=== PATIENT | male | born 1995 | race Caucasian/White ===

== ENCOUNTER 2017-04-27 10:49 | Emergency (ER) | payer OTHER ==
[~2017-04-27] VITALS: Ht 182.9 cm; Wt 68.2 kg
[2017-04-27 10:49] VITALS: BP 103/69
[2017-04-27] MEDS ORDERED: ZITHTAB PO ×2 (11:19→11:30)
[2017-04-27] MEDS ORDERED: TESS100C PO ×2 (11:19→11:30)
== END 2017-04-27 11:46 | disposition home or self-care (01) ==
LOC: M ED 10:49
DX: J06.9 Acute upper respiratory infection, unspecified (principal)

== ENCOUNTER 2017-06-06 13:31 | Emergency (ER) | payer OTHER ==
[~2017-06-06] VITALS: Ht 182.9 cm; Wt 70.5 kg
[~2017-06-06 13:31] MED LIST: TESS100C PO; ZITHTAB PO
[2017-06-06] MEDS ORDERED: diphenhydrAMINE INJ 50MG/ML VIAL (J1200) IV ONE (14:45)
[2017-06-06] MEDS ORDERED: KETOROLAC 30 MG/ML VIAL (J1885) IV ONE (14:45)
[2017-06-06] MEDS ORDERED: NS 1,000 ML IV ONE (14:45)
[2017-06-06] MEDS ORDERED: METOCLOPRAMIDE INJ 10MG/2ML VIAL (J2765) IV ONE (14:45)
[2017-06-06 15:19] LABS: BASO % 0.2 % (0.0-1.0); EOS % 0.4 % (0.0-3.0); IMMATURE GRANULOCYTE % 0.3 % (0-0); LYMPH # 0.8 10^3/uL (1.5-6.5); LYMPH % 7.7 % (24.0-44.0); MEAN CORPUSCULAR HEMOGLOBIN 28.4 pg (27.0-33.0); MEAN CORPUSCULAR HGB CONC 33.5 g/dl (32.0-36.5); MEAN CORPUSCULAR VOLUME 84.7 fl (80.0-96.0); MONO # 0.6 10^3/uL (0.0-0.8); MONO % 5.8 % (0.0-5.0); NEUTROPHILS # 9.3 10^3/uL (1.8-7.7); NEUTROPHILS % 85.6 % (36.0-66.0); PLATELET COUNT, AUTOMATED 167 10^3/uL (150-450); RED CELL DISTRIBUTION WIDTH 12.7 % (11.5-14.5); WHITE BLOOD COUNT 10.9 10^3/uL (4.0-10.0)
[2017-06-06 16:21] LABS: ALT/SGPT 19 U/L (12-78); ANION GAP 6 MEQ/L (8-16); AST/SGOT 12 U/L (15-37); BLOOD UREA NITROGEN 16 MG/DL (7-18); CALCIUM LEVEL 8.9 MG/DL (8.5-10.1); CARBON DIOXIDE LEVEL 29 MEQ/L (21-32); CHLORIDE LEVEL 105 MEQ/L (98-107); CREATININE FOR GFR 0.86 MG/DL (0.70-1.30); GLUCOSE, FASTING 94 MG/DL (70-105); POTASSIUM SERUM 3.9 MEQ/L (3.5-5.1); SODIUM LEVEL 140 MEQ/L (136-145)
[2017-06-06 16:22] LABS: ALBUMIN 4.4 GM/DL (3.2-5.2); ALBUMIN/GLOBULIN RATIO 1.52 (1.00-1.93); ALKALINE PHOSPHATASE 78 U/L (45-117); BILIRUBIN,DIRECT 0.3 MG/DL (0.0-0.2); BILIRUBIN,TOTAL 0.9 MG/DL (0.2-1.0); TOTAL PROTEIN 7.3 GM/DL (6.4-8.2)
[2017-06-06] MEDS ORDERED: ACETAMINOPHEN 325 MG TAB PO ONE (17:00)
[2017-06-06 17:05] VITALS: BP 104/62
== END 2017-06-06 17:10 | disposition home or self-care (01) ==
LOC: M ED 13:31
DX: R11.2 Nausea with vomiting, unspecified (principal); R19.7 Diarrhea, unspecified
CPT/HCPCS: 36415; 80048; 80076; 83690; 85025; 96361; 96374; 96375; 99283; J1200; J1885; J2765

== ENCOUNTER 2017-12-28 11:02 | Emergency (ER) | payer OTHER | END 2017-12-28 12:19 | disposition home or self-care (01) | LOC: M ED 11:02 | DX: M25.551 Pain in right hip (principal); G89.29 Other chronic pain | CPT/HCPCS: 99283 ==

== ENCOUNTER → 2017-12-31 | Outpatient (CLI) | payer OTHER ==
[~2017-12-31] MED LIST changes: +CONRAY-43 43% 50ML VIAL (Q9960) As Ordered; +LIDOCAINE 1% MDV 20ML VIAL As Ordered; -TESS100C PO; +TRIAMCINOLONE ACETONIDE SUSP 40 MG/ML VIAL (J3301) As Ordered; -ZITHTAB PO
== END ==
LOC: M RADPRO 11:13
DX: M25.851 Other specified joint disorders, right hip (principal)
CPT/HCPCS: 20610

== ENCOUNTER 2018-04-10 16:10 | Inpatient (IN) | payer OTHER ==
[2018-04-10] MEDS ORDERED: dexameTHASONE 4 MG/ML 1ML VIAL (J1100) As Ordered (17:13)
[2018-04-10] MEDS ORDERED: PROPOFOL 200 MG/20 ML VIAL As Ordered ×2 (17:13→18:00)
[2018-04-10] MEDS ORDERED: fentaNYL 100 MCG/2 ML INJECTION (J3010) As Ordered ×2 (17:13→18:12)
[2018-04-10] MEDS ORDERED: LIDOCAINE 2% INJ 100 MG/5 ML SDV (FOR ANES.) As Ordered (17:13)
[2018-04-10] MEDS ORDERED: ONDANSETRON 4MG/2ML VIAL (J2405) As Ordered (17:13)
[2018-04-10] MEDS ORDERED: MIDAZOLAM INJ 2 MG/2 ML VIAL (J2250) As Ordered (17:13)
[2018-04-10] MEDS ORDERED: KETOROLAC 60 MG/2 ML VIAL (J1885) As Ordered (17:47)
[2018-04-10] MEDS: VANCOMYCIN HCL 1,000 MG, VIAL MATE ADAPTER 1 EACH in D5W 250 ML IV (18:15)
[2018-04-10] MEDS: BUPIVACAINE HCL 0.25% 30 ML VIAL As Ordered (18:29)
[2018-04-10] MEDS: LIDOCAINE 1% SDV INJ 30 ML VIAL As Ordered (18:29)
[2018-04-10] MEDS ORDERED: MEPERIDINE INJ 25 MG/ML VIAL (J2175) As Ordered (18:50)
[2018-04-10] MEDS: MEPERIDINE INJ 25 MG/ML VIAL (J2175) IV ×2 (18:52→18:57)
[2018-04-10] MEDS ORDERED: fentaNYL 100 MCG/2 ML INJECTION (J3010) IV (19:00)
[2018-04-10] MEDS ORDERED: ONDANSETRON 4MG/2ML VIAL (J2405) IV (19:00)
[2018-04-10] MEDS ORDERED: PERCOCET 5MG/325MG TAB PO (19:00)
[2018-04-10] MEDS ORDERED: VANCOMYCIN HCL 500 MG in D5W MINI-BAG PLUS 100 ML IV (20:00)
[2018-04-10] MEDS: diphenhydrAMINE 50 MG CAP PO (21:07)
[2018-04-10] MEDS: PIPERACILLIN/TAZOBACTAM SOD 3.375 GM in D5W MINI-BAG PLUS 50 ML IV (21:07)
[2018-04-10] MEDS: NS 1,000 ML IV (21:08)
[2018-04-10] MEDS: MORPHINE 4 MG/ML 1ML VIAL/SYRINGE (J2270) IV (21:50)
[2018-04-11] MEDS: PERCOCET 5MG/325MG TAB PO ×3 (01:40→18:54)
[2018-04-11] MEDS ORDERED: VANCOMYCIN HCL 1,000 MG, VIAL MATE ADAPTER 1 EACH in D5W 250 ML IV ×2 (02:00→10:15)
[2018-04-11] MEDS: PIPERACILLIN/TAZOBACTAM SOD 3.375 GM in D5W MINI-BAG PLUS 50 ML IV ×4 (03:56→21:04)
[2018-04-11] MEDS ORDERED: diphenhydrAMINE 50 MG CAP PO (06:30)
[2018-04-11 07:50] LABS: HEMOGLOBIN 12.2 g/dl (13.5-17.5); MEAN CORPUSCULAR HEMOGLOBIN 28.9 pg (27.0-33.0); MEAN CORPUSCULAR HGB CONC 33.9 g/dl (32.0-36.5); MEAN CORPUSCULAR VOLUME 85.3 fl (80.0-96.0); PLATELET COUNT, AUTOMATED 188 10^3/uL (150-450); RED BLOOD COUNT 4.22 10^6/uL (4.30-6.10); RED CELL DISTRIBUTION WIDTH 12.3 % (11.5-14.5); WHITE BLOOD COUNT 9.8 10^3/uL (4.0-10.0)
[2018-04-11] MEDS: LR 1,000 ML IV (07:58)
[2018-04-11 08:42] LABS: ERYTHROCYTE SEDIMENTATION RATE 12 mm/hr (0-15)
[2018-04-11] MEDS: DOCUSATE SODIUM 100 MG CAP PO (09:09)
[2018-04-11] MEDS: NS 1,000 ML IV (11:50)
[2018-04-11] MEDS: ASPIRIN 325 MG TAB PO (11:50)
[2018-04-11 12:16] LABS: ANION GAP 6 MEQ/L (8-16); BLOOD UREA NITROGEN 9 MG/DL (7-18); CALCIUM LEVEL 8.3 MG/DL (8.5-10.1); CARBON DIOXIDE LEVEL 30 MEQ/L (21-32); CHLORIDE LEVEL 109 MEQ/L (98-107); CREATININE FOR GFR 1.03 MG/DL (0.70-1.30); GLOMERULAR FILTRATION RATE > 60.0 (>60); GLUCOSE, FASTING 111 MG/DL (70-100); SODIUM LEVEL 145 MEQ/L (136-145)
[2018-04-12] MEDS: PERCOCET 5MG/325MG TAB PO ×3 (02:33→20:32)
[2018-04-12] MEDS: PIPERACILLIN/TAZOBACTAM SOD 3.375 GM in D5W MINI-BAG PLUS 50 ML IV ×4 (03:18→20:31)
[2018-04-12 06:21] LABS: HEMATOCRIT 33.9 % (42.0-52.0); HEMOGLOBIN 11.2 g/dl (13.5-17.5); MEAN CORPUSCULAR HEMOGLOBIN 28.1 pg (27.0-33.0); PLATELET COUNT, AUTOMATED 174 10^3/uL (150-450); RED BLOOD COUNT 3.99 10^6/uL (4.30-6.10); RED CELL DISTRIBUTION WIDTH 12.4 % (11.5-14.5); WHITE BLOOD COUNT 7.1 10^3/uL (4.0-10.0)
[2018-04-12 06:34] LABS: ANION GAP 7 MEQ/L (8-16); BLOOD UREA NITROGEN 8 MG/DL (7-18); C REACTIVE PROTEIN QUANTITATIV 5.37 MG/DL (0.00-0.30); CALCIUM LEVEL 8.5 MG/DL (8.5-10.1); CARBON DIOXIDE LEVEL 29 MEQ/L (21-32); CHLORIDE LEVEL 107 MEQ/L (98-107); CREATININE FOR GFR 0.92 MG/DL (0.70-1.30); GLOMERULAR FILTRATION RATE > 60.0 (>60); GLUCOSE, FASTING 91 MG/DL (70-100); POTASSIUM SERUM 3.4 MEQ/L (3.5-5.1); SODIUM LEVEL 143 MEQ/L (136-145)
[2018-04-12 07:37] LABS: ERYTHROCYTE SEDIMENTATION RATE 19 mm/hr (0-15)
[2018-04-12] MEDS: ASPIRIN 325 MG TAB PO (08:46)
[2018-04-12] MEDS: DOCUSATE SODIUM 100 MG CAP PO (08:47)
[2018-04-13] MEDS: PIPERACILLIN/TAZOBACTAM SOD 3.375 GM in D5W MINI-BAG PLUS 50 ML IV ×4 (03:43→21:11)
[2018-04-13] MEDS: PERCOCET 5MG/325MG TAB PO ×3 (03:52→20:27)
[2018-04-13 07:04] LABS: HEMATOCRIT 35.3 % (42.0-52.0); HEMOGLOBIN 11.9 g/dl (13.5-17.5); MEAN CORPUSCULAR HGB CONC 33.7 g/dl (32.0-36.5); MEAN CORPUSCULAR VOLUME 85.9 fl (80.0-96.0); PLATELET COUNT, AUTOMATED 197 10^3/uL (150-450); RED BLOOD COUNT 4.11 10^6/uL (4.30-6.10); RED CELL DISTRIBUTION WIDTH 12.2 % (11.5-14.5); WHITE BLOOD COUNT 5.9 10^3/uL (4.0-10.0)
[2018-04-13 07:18] LABS: ANION GAP 7 MEQ/L (8-16); BLOOD UREA NITROGEN 8 MG/DL (7-18); C REACTIVE PROTEIN QUANTITATIV 4.06 MG/DL (0.00-0.30); CALCIUM LEVEL 8.7 MG/DL (8.5-10.1); CARBON DIOXIDE LEVEL 30 MEQ/L (21-32); CHLORIDE LEVEL 106 MEQ/L (98-107); CREATININE FOR GFR 0.89 MG/DL (0.70-1.30); GLOMERULAR FILTRATION RATE > 60.0 (>60); GLUCOSE, FASTING 95 MG/DL (70-100); POTASSIUM SERUM 3.8 MEQ/L (3.5-5.1); SODIUM LEVEL 143 MEQ/L (136-145)
[2018-04-13 07:34] LABS: ERYTHROCYTE SEDIMENTATION RATE 30 mm/hr (0-15)
[2018-04-13] MEDS: ASPIRIN 325 MG TAB PO (08:51)
[2018-04-13] MEDS: DOCUSATE SODIUM 100 MG CAP PO (08:51)
[2018-04-14] MEDS: PIPERACILLIN/TAZOBACTAM SOD 3.375 GM in D5W MINI-BAG PLUS 50 ML IV ×4 (02:55→20:39)
[2018-04-14] MEDS: PERCOCET 5MG/325MG TAB PO ×3 (02:55→20:46)
[2018-04-14 07:30] LABS: ANION GAP 7 MEQ/L (8-16); BLOOD UREA NITROGEN 8 MG/DL (7-18); CALCIUM LEVEL 8.8 MG/DL (8.5-10.1); CARBON DIOXIDE LEVEL 30 MEQ/L (21-32); CHLORIDE LEVEL 107 MEQ/L (98-107); CREATININE FOR GFR 0.77 MG/DL (0.70-1.30); GLOMERULAR FILTRATION RATE > 60.0 (>60); GLUCOSE, FASTING 90 MG/DL (70-100); POTASSIUM SERUM 3.7 MEQ/L (3.5-5.1); SODIUM LEVEL 144 MEQ/L (136-145)
[2018-04-14] MEDS: ASPIRIN 325 MG TAB PO (08:48)
[2018-04-15] MEDS: LevoFLOXacin 750 MG TABLET PO (05:52)
[2018-04-15 07:08] LABS: ANION GAP 6 MEQ/L (8-16); BLOOD UREA NITROGEN 10 MG/DL (7-18); CALCIUM LEVEL 8.9 MG/DL (8.5-10.1); CARBON DIOXIDE LEVEL 30 MEQ/L (21-32); CHLORIDE LEVEL 106 MEQ/L (98-107); CREATININE FOR GFR 0.74 MG/DL (0.70-1.30); GLOMERULAR FILTRATION RATE > 60.0 (>60); GLUCOSE, FASTING 88 MG/DL (70-100); POTASSIUM SERUM 3.7 MEQ/L (3.5-5.1); SODIUM LEVEL 142 MEQ/L (136-145)
[2018-04-15] MEDS: ASPIRIN 325 MG TAB PO (09:50)
[2018-04-15] MEDS: PERCOCET 5MG/325MG TAB PO (14:22)
[2018-04-15 16:10] LABS: C REACTIVE PROTEIN QUANTITATIV 1.32 MG/DL (0.00-0.30)
== END 2018-04-15 15:57 | disposition home or self-care (01) | DRG 857 ==
LOC: M OR 16:10 → M PED 19:38
PROC: 0S9900Z Drainage of Right Hip Joint with Drainage Device, Open Approach (ICD-10-PCS; principal; 2018-04-10 15:02)
DX: T81.4XXA Infection following a procedure, initial encounter (principal); M00.851 Arthritis due to other bacteria, right hip; F17.210 Nicotine dependence, cigarettes, uncomplicated; B96.5 Pseudomonas (aeruginosa) (mallei) (pseudomallei) as the cause of diseases classified elsewhere; B96.89 Other specified bacterial agents as the cause of diseases classified elsewhere; T36.8X5A Adverse effect of other systemic antibiotics, initial encounter; R23.2 Flushing; Z91.048 Other nonmedicinal substance allergy status; Y82.9 Unspecified medical devices associated with adverse incidents

== ENCOUNTER → 2018-10-31 | Outpatient (CLI) | payer OTHER ==
[~2018-10-31] MED LIST changes: -CONRAY-43 43% 50ML VIAL (Q9960) As Ordered; +CONRAY-43 43% 50ML VIAL (Q9960) As Ordered ONE; -LIDOCAINE 1% MDV 20ML VIAL As Ordered; +LIDOCAINE 1% MDV 20ML VIAL As Ordered ONE; +NAPR220C PO; +TESS100C PO; -TRIAMCINOLONE ACETONIDE SUSP 40 MG/ML VIAL (J3301) As Ordered; +TRIAMCINOLONE ACETONIDE SUSP 40 MG/ML VIAL (J3301) As Ordered ONE; +ZITHTAB PO
--- NOTE | 2018-10-31 16:43 | REP ---
Left hip injection The procedure was performed under the direct supervision of Dr. Cooney. The benefits and risks including but not limited to pain infection and bleeding and anaphylaxis were explained to the patient and informed consent was obtained. The left femoral neck was localized using fluoroscopic guidance. The skin was prepped and draped in a sterile fashion. 1% lidocaine was used as a local anesthetic. Using fluoroscopic guidance a 22-gauge spinal needle was inserted and advanced to the femoral neck. 0.5 ml of Conray 43 was injected to verify placement. 10 ml of a solution containing 9 ml of 1% Xylocaine and 1 ml of Kenalog 40 mg was injected. The needle was then removed. The patient tolerated the procedure well and there were no immediate complications. Less than six seconds of fluoro time was utilized for this procedure. Reviewed by CHELI Martinez 10/31/2018 03:11 P Electronically Signed by Bunny Cooney MD 10/31/2018 04:34 P
== END ==
LOC: M RADPRO 09:29
DX: M25.552 Pain in left hip (principal); M25.859 Other specified joint disorders, unspecified hip
CPT/HCPCS: 20610; 77002; J3301; Q9960

== ENCOUNTER → 2018-11-07 | Outpatient (CLI) | payer OTHER ==
[~2018-11-07] MED LIST changes: -LIDOCAINE 1% MDV 20ML VIAL As Ordered ONE; +PROHANCE 279.3MG/ML 5ML VIAL (A9576) As Ordered ONE; -TRIAMCINOLONE ACETONIDE SUSP 40 MG/ML VIAL (J3301) As Ordered ONE
--- NOTE | 2018-11-07 10:00 | REP ---
MRI LEFT HIP WITHOUT AND WITH CONTRAST ARTHROGRAM: 11/07/2018. 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 Technique: Standard whole pelvic T1 and STIR images with fat suppressed T2 coronal, sagittal axial images following gadolinium arthrogram injection and fat suppressed T1 coronal, sagittal and axial images provided. Findings: Whole pelvic marrow imaging shows lower lumbar, sacral, iliac, acetabular hip. Trochanteric and subtrochanteric marrow without any acute finding. There is a small enchondroma in the intertrochanteric region on the right. No evidence of a joint effusion. The intrinsic and extrinsic pelvic, hip and buttocks and proximal thigh muscles included were symmetric and normal in signal. I do not see any significant trochanteric tendinobursitis about either hip. There is no abnormal thickening of the iliotibial band with symmetric appearance. On the contrast arthrogram images, there is no evidence of a loose body. Subtle increased signal along the inferior aspect of the superior labrum anteriorly seen on coronal and axial images suggesting a small labral tear. There is a small paralabral sulcus noted as well. There is no signal abnormality about the distal course of the iliopsoas tendon or its insertion. The obturator internus and gluteus medius tendons also show no abnormality at their insertion and the hamstring tendon insertions are normal. Impression: 1. Small anterior superior labral tear best on the arthrogram images in cm axial and coronal sequences. No loose body. A small paralabral sulcus. 2. There is no bone bruise or fracture. 3. Tendons of the iliopsoas, obturator internus, hamstrings and gluteus medius grossly intact at their insertions. Electronically Signed by Nolan Alfonso MD 11/07/2018 06:31 P
--- NOTE | 2018-11-07 18:23 | REP ---
Left hip arthrogram The procedure was performed under the direction supervision of Dr. Alfonso. The benefits and risks including but not limited to pain, infection, bleeding and anaphylaxis were explained to the patient and informed consent was obtained. The left femoral neck was localized using fluoroscopic guidance. Skin was prepped and draped in a sterile fashion. 1% lidocaine was used as a local anesthetic. Using fluoroscopic guidance a 22 gauge spinal needle was inserted and advanced to the femoral neck. 0.5 ml of Conray 43 was injected to verify placement. 11 ml of a solution containing 20 ml of sterile saline and 0.15 ml of ProHance was injected into the joint. The needle was removed and the patient was taken to MRI for postprocedural imaging. The patient tolerated the procedure well and there were no immediate complications. Less than 6 seconds of fluoro time was utilized for this procedure. Reviewed by CHELI Martinez 11/07/2018 04:21 P Electronically Signed by Nolan Alfonso MD 11/07/2018 06:14 P
== END ==
LOC: M RADPRO 06:28
DX: M25.852 Other specified joint disorders, left hip (principal); M25.552 Pain in left hip
CPT/HCPCS: 27093; 73723; 77002; A9576; Q9960

== ENCOUNTER 2019-05-08 17:46 | Emergency (ER) | payer OTHER ==
[~2019-05-08] VITALS: Ht 182.9 cm; Wt 73.7 kg
[2019-05-08 17:46] VITALS: BP 136/74
[~2019-05-08 17:46] MED LIST changes: -CONRAY-43 43% 50ML VIAL (Q9960) As Ordered ONE; -PROHANCE 279.3MG/ML 5ML VIAL (A9576) As Ordered ONE
[2019-05-08 18:26] LABS: BASO % 0.6 % (0.0-1.0); EOS % 0.8 % (0.0-3.0); HEMATOCRIT 42.6 % (42.0-52.0); HEMOGLOBIN 14.4 g/dl (13.5-17.5); LYMPH # 2.3 10^3/uL (1.5-5.0); LYMPH % 44.5 % (24.0-44.0); MEAN CORPUSCULAR HEMOGLOBIN 29.3 pg (27.0-33.0); MEAN CORPUSCULAR HGB CONC 33.8 g/dl (32.0-36.5); MEAN CORPUSCULAR VOLUME 86.6 fl (80.0-96.0); MONO # 0.6 10^3/uL (0.0-0.8); MONO % 11.9 % (0.0-5.0); NEUTROPHILS # 2.2 10^3/uL (1.5-8.5); PLATELET COUNT, AUTOMATED 199 10^3/uL (150-450); RED BLOOD COUNT 4.92 10^6/uL (4.30-6.10); WHITE BLOOD COUNT 5.1 10^3/uL (4.0-10.0)
[2019-05-08 19:01] LABS: BLOOD UREA NITROGEN 14 MG/DL (7-18); CALCIUM LEVEL 9.5 MG/DL (8.5-10.1); CARBON DIOXIDE LEVEL 27 MEQ/L (21-32); CHLORIDE LEVEL 107 MEQ/L (98-107); CK-MB VALUE MASS < 1.0 NG/ML (<3.6); CPK CREATINE PHOSPHOKINASE 378 U/L (39-308); CREATININE FOR GFR 0.88 MG/DL (0.70-1.30); GLOMERULAR FILTRATION RATE > 60.0 (>60); GLUCOSE, FASTING 95 MG/DL (70-100); MB/CK RELATIVE INDEX 0.26 (< OR =4); POTASSIUM SERUM 4.1 MEQ/L (3.5-5.1); SODIUM LEVEL 142 MEQ/L (136-145); TROPONIN I < 0.02 NG/ML (< 0.10)
--- NOTE | 2019-05-08 19:32 | REP ---
HISTORY: Coughing. FINDINGS: The superior mediastinal structures are midline. The cardiac silhouette is unremarkable in size, shape and position. The diaphragmatic surfaces of the lungs are regular and the costophrenic angles are clear. The pulmonary nelson are clear. The imaged osseous structures are intact. IMPRESSION: There is no acute cardiopulmonary disease. Electronically Signed by Mark Anthony Valdes DO 05/08/2019 07:42 P
--- NOTE | 2019-05-09 05:54 | ECGEPIP ---
[facility] - ED Test Date: 2019-05-08 Pat Name: NBA LANDRY Department: Room: - Gender: Male [employer]: CT : 1995 Requested By: JR BENOIT Order Number: [id number] Reading MD: John Bojorquez Measurements Intervals Herman Rate: 77 P: 59 NJ: 120 QRS: 70 QRSD: 92 T: 38 QT: 367 QTc: 418 Interpretive Statements SINUS RHYTHM BENIGN EARLY REPOLARIZATION NO PRIORS FOR COMPARISON Electronically Signed on 05-09-2019 5:53:38 EDT by John Bojorquez
== END 2019-05-08 19:37 | disposition home or self-care (01) ==
LOC: M ED 17:46
DX: R07.89 Other chest pain (principal); R06.02 Shortness of breath; Z88.1 Allergy status to other antibiotic agents; Z77.098 Contact with and (suspected) exposure to other hazardous, chiefly nonmedicinal, chemicals

== ENCOUNTER 2019-06-03 01:49 | Emergency (ER) | payer OTHER ==
[~2019-06-03] VITALS: Ht 182.9 cm; Wt 70.5 kg
[2019-06-03] MEDS ORDERED: NAPR-855 (01:57)
[2019-06-03] MEDS ORDERED: NS 1,000 ML IV ONE (02:30)
[2019-06-03 03:34] LABS: INFLUENZA A AMPLIFICATION NEGATIVE (NEGATIVE); INFLUENZA B AMPLIFICATION NEGATIVE (NEGATIVE)
[2019-06-03 03:45] VITALS: BP 115/65
== END 2019-06-03 03:52 | disposition home or self-care (01) ==
LOC: M ED 01:49
DX: B34.8 Other viral infections of unspecified site (principal); K12.1 Other forms of stomatitis; Z88.8 Allergy status to other drugs, medicaments and biological substances